=== PATIENT | female | born 1965 | race Two or more races ===

== ENCOUNTER 2025-06-02 12:58 | Emergency (ER) | payer MEDICAID, SELFPAY ==
[2025-06-02 13:00] VITALS: BMI 28.6
[2025-06-02 13:25] VITALS: BP 102/68; PULSE 107; RESP 18; TEMP 39.5; O2SAT 96
--- NOTE | 2025-06-02 13:36 | XR_ITS ---
Examination: PA chest single view TECHNIQUE: Upright PA chest single view Date and time: 06/02/2025 1426 hours INDICATIONS: Shortness of breath and fever beginning 4 days ago. FINDINGS: Normal heart size. Lungs are clear. The osseous structures are intact. IMPRESSION: No active disease
[2025-06-02 14:09] LABS: Lactate (Lactic Acid) 1.1 mMol/L (0.4-2.0)
[2025-06-02 14:16] LABS: Basophils # (Auto) 0.0 Thou/mm3 (0.0-0.2); Basophils % (Auto) 0 % (0-2.5); Eosinophils # (Auto) 0.0 Thou/mm3 (0.0-0.5); Eosinophils % (Auto) 0 % (0-10); Hematocrit 30.4 % (36.0-46.0); Hemoglobin 10.4 g/dL (12.0-16.0); Immature Granulocytes Auto 0.02 Thou/mm3 (0.00-0.00); Lymphocytes # (Auto) 0.3 Thou/mm3 (1.0-4.8); Lymphocytes % (Auto) 4 % (10-50); Mean Corpuscular HGB Conc 34.2 g/dl (31.0-37.0); Mean Corpuscular Hemoglobin 29.1 pg (25.0-35.0); Mean Corpuscular Volume 85 fL (80-100); Monocytes # (Auto) 0.3 Thou/mm3 (0.0-0.8); Monocytes % (Auto) 4 % (0-12); Neutrophils # (Auto) 7.3 Thou/mm3 (1.8-7.7); Neutrophils % (Auto) 92 % (37-80); Nucleated Red Blood Cell # 0.00 Thou/mm3 (0.00-0.00); Nucleated Red Blood Cell % 0 /100 WBC (0); Platelet Count 149 Thou/mm3 (140-440); RDW Standard Deviation 39.5 fL (36.4-46.3); Red Blood Count 3.57 Miln/mm3 (4.00-5.20); White Blood Count 8.0 Thou/mm3 (3.6-11.0)
[2025-06-02 14:42] LABS: Alanine Aminotransferase 9 U/L (10-49); Albumin, Serum 4.0 gm/dL (3.5-5.0); Albumin/Globulin Ratio 2.1 (1.2-2.2); Alkaline Phosphatase 91 U/L (46-116); Anion Gap 9 (7-16); Aspartate Amino Transferase 29 U/L (0-34); BUN/Creatinine Ratio 14 Ratio (12-20); Bilirubin,Total 0.5 mg/dL (0.3-1.2); Blood Urea Nitrogen 11 mg/dL (9-23); Calcium 8.6 mg/dL (8.3-10.6); Calcium (Corrected) 8.6 mg/dL (8.5-10.1); Carbon Dioxide 20.9 mMol/L (20.0-31.0); Chloride 99 mMol/L (98-107); Creatinine (Component) 0.8 mg/dL (0.6-1.3); Estimated Creatinine Clearance 79.1 mL/min (>60); Globulin 1.9 gm/dL (2.3-3.5); Glucose 182 mg/dL (74-106); Osmolality,Calculated 263 (275-295); Potassium 4.2 mMol/L (3.4-5.1); Sodium 129 mMol/L (136-145); Total Protein 5.9 gm/dL (5.7-8.2); eGFR > 60 See Note
[2025-06-02 14:43] LABS: Collection Type, Urine Voided
[2025-06-02 15:02] LABS: Bacteria,Urine Rare; Bilirubin,Urine Negative (Negative); Blood,Urine 2+ (Negative); Clarity,Urine Turbid (Clear/Hazy); Color,Urine Yellow (Lt Yel-Yel); Glucose, Urine Negative (Negative); Ketones,Urine Negative (Negative); Leukocyte Esterase,Urine Positive (Negative); Nitrite,Urine Positive (Negative); PH,Urine 6.5 (5.0-7.0); Protein,Urine 2+ (Neg - Trace); RBC,Urine 19 /hpf (0-3); Specific Gravity,Urine 1.018 (1.001-1.035); Squamous Epithelial Cell,Urine 2 /hpf (0-5); Urobilinogen,Urine Negative mg/dL (0.0-1.0); WBC,Urine 206 /hpf (0-5)
[2025-06-02 15:14] VITALS: TEMP 39.5
[2025-06-02] MEDS: ACETAMINOPHEN 500 MG TABLET 1000 MG PO (15:14)
[2025-06-02 15:45] VITALS: TEMP 37.3
[2025-06-02] MEDS: SODIUM CHLORIDE 0.9% 1000 ML 1,000 ML 999 ML IV (16:52)
[2025-06-02 17:08] LABS: Sodium 129 mMol/L (136-145)
--- NOTE | 2025-06-02 17:14 | EDNOTE_ITS ---
ED Fever RME/HPI General Chief Complaint: Fever Stated Complaint: FEVER/CHILLS x 4 DAYS, DIAG WITH UTI Time Seen by Provider: 06/02/25 13:06 Arrival date/time: 06/02/25 12:58 This is a case of 60-year-old female with no medical history came into the emergency room due to on and off fever and chills for 4 days associated with painful urination patient denies any nausea vomiting abdominal pain flank pain back pain or blood in the urine patient sought consult to PCP where she was diagnosed to have urinary tract infection and was discharged with Macrobid due to persistence of the symptoms this patient decided to start consult in the emergency room Limitations: no limitations Related Data Previous Rx's ?Medication ?Instructions ?Recorded albuterol sulfate 90 mcg/actuation 1 inh inhalation Q6 H PRN shortness 06/29/24 aerosol inhaler of breath or wheezing #8.5 g jorge cefuroxime axetil 500 mg tablet 500 mg PO Q12H #20 tab s 06/02/25 ibuprofen 800 mg tablet 800 mg PO Q8H PRN pain #20 t abs 06/02/25 phenazopyridine 200 mg tablet 200 mg PO TID 6 doses #6 tabs 06/02/25 (Pyridium) Allergies Allergy/AdvReac Type Severity Reaction Status Date / Time No Known Allergies Allergy Verified 06/02/25 13:05 Review of Systems Review of Systems Systems Reviewed: All systems reviewed, normal except as documented Constitutional Constitutional: Reports system reviewed and no additional complaints, except as documented and Reports as per HPI Cardiovascular Cardiovascular: Reports system reviewed and no additional complaints, except as documented and Reports as per HPI Respiratory Respiratory: Reports system reviewed and no additional complaints, except as documented and Reports as per HPI Gastrointestinal Gastrointestinal: Reports system reviewed and no additional complaints, except as documented and Reports as per HPI Genitourinary Genitourinary: Reports system reviewed and no additional complaints, except as documented and Reports as per HPI Musculoskeletal Musculoskeletal: Reports system reviewed and no additional complaints, except as documented and Reports as per HPI Neurologic Neurologic: Reports system reviewed and no additional complaints, except as documented and Reports as per HPI Past Medical History Past Medical History NEUROLOGIC: Negative Neurological Disorders or Seizures CARDIAC: Negative Cardiac Disorders, Hypercholesterolemia or Congestive Heart Failure RESPIRATORY: Negative Chronic Obstructive Pulmonary Disease (COPD) GASTROINTESTINAL: Positive Gastrointestinal Disorders, Gastroesophageal Reflux Disease and Obesity; Negative Hepatitis GENITOURINARY: Negative Genitourinary Disorders or Renal Disease REPRODUCTIVE: Positive Previous Pregnancies MUSCULOSKELETAL: Positive Musculoskeletal Disorders and Arthritis ENDOCRINE: Negative Endocrine Disorders, Diabetes Mellitus Type 1 or Diabetes Mellitus Type 2 HEMATOLOGIC: Negative Blood Disorders PSYCHO/SOCIAL: Positive Anxiety (no med) OTHER HISTORY: Positive Chicken Pox, Measles and Mumps; Negative Hospitalization, Autoimmune Disease, Shingles, Blood Transfusions, Blood Transfusion Reaction, Anesthesia Reactions or Cancer Family History FAMILY HISTORY: Negative Family Psychiatric Problems, Family Respiratory Disorders, Family Cardiac Disorders, Family Gastrointestinal Problems, Family Cancer, Family Surgery or Family Anesthesia Reaction Social History SMOKING STATUS: Never smoker SUBSTANCE USE: does not use Physical Exam General Limitations: no limitations General appearance: alert, in no apparent distress and other (Patient is awake alert oriented not in distress nontoxic looking well-hydrated well-nourished) Head Head exam: atraumatic, normocephalic and normal inspection Eye Eye exam: Present normal appearance, PERRL and EOMI ENT ENT exam: Present normal exam, normal oropharynx, mucous membranes moist and other (HEENT exam is normal and unremarkable) Neck Neck exam: Present normal inspection, full ROM, trachea midline and other (Negative for meningeal sign); Absent tenderness, meningismus, lymphadenopathy or thyromegaly Chest Chest inspection: Present normal inspection and symmetric chest wall rise; Absent tenderness Respiratory Respiratory exam: Present normal lung sounds bilaterally; Absent respiratory distress, wheezes, stridor, accessory muscle use or prolonged expiratory phase Cardiovascular Cardiovascular exam: Present regular rate, normal rhythm and normal heart sounds; Absent bradycardia, tachycardia, irregular rhythm, systolic murmur or diastolic murmur Abdominal Exam Abdominal exam: Present soft and normal bowel sounds; Absent distention, tenderness, guarding, rebound, rigidity, diminished bowel sounds, hyperactive bowel sounds, hypoactive bowel sounds or organomegaly Extremities Exam Extremities exam: Present normal inspection and full ROM Back Exam Back exam: Present normal inspection and full ROM Neurological Exam Neurological exam: Present alert, oriented X3, CN II-XII intact, normal gait and reflexes normal; Absent motor sensory deficit Psychiatric Psychiatric exam: Present normal affect and normal mood Skin Skin exam: Present warm, dry, intact, normal color and other (Excellent skin turgor) ED Exam General Limitations: Present no limitations General appearance: Present alert, in no apparent distress and other (Patient is awake alert oriented not in distress nontoxic looking well-hydrated well- nourished) Head Head exam: Present atraumatic, normocephalic and normal inspection Eye Eye exam: Present normal appearance, PERRL and EOMI ENT ENT exam: Present normal exam, normal oropharynx, mucous membranes moist and other (HEENT exam is normal and unremarkable) Neck Neck exam: Present normal inspection, full ROM, trachea midline and other (Negative for meningeal sign); Absent tenderness, meningismus, lymphadenopathy or thyromegaly Chest Chest inspection: Present normal inspection and symmetric chest wall rise; Absent tenderness Respiratory Respiratory exam: Present normal lung sounds bilaterally; Absent respiratory distress, wheezes, stridor, accessory muscle use or prolonged expiratory phase Cardiovascular Cardiovascular exam: Present regular rate, normal rhythm and normal heart sounds; Absent bradycardia, tachycardia, irregular rhythm, systolic murmur or diastolic murmur Abdominal Exam Abdominal exam: Present soft and normal bowel sounds; Absent distention, tenderness, guarding, rebound, rigidity, diminished bowel sounds, hyperactive bowel sounds, hypoactive bowel sounds or organomegaly Extremities Exam Extremities exam: Present normal inspection and full ROM Back Exam Back exam: Present normal inspection and full ROM Neurological Exam Neurological exam: Present alert, oriented X3, CN II-XII intact, normal gait and reflexes normal; Absent motor sensory deficit Psychiatric Psychiatric exam: Present normal affect and normal mood Skin Skin exam: Present warm, dry, intact, normal color and other (Excellent skin turgor) Course Quality Measures none Orders Category Date Time Status Bedside COVID-19 Antigen Test NOW Care 06/02/25 13:36 Active Bedside Influenza A&B Antigen Test NOW Care 06/02/25 13:37 Completed XR chest 1V Stat Exams 06/02/25 13:36 Completed Blood Culture (Lab) Stat Lab 06/02/25 13:50 Received CBC Stat Lab 06/02/25 13:56 Completed CMP [Comprehensive Metabolic Panel] Stat Lab 06/02/25 13:56 Completed Lactic Acid [Lactate (Lactic Acid)] Stat Lab 06/02/25 13:56 Completed Sodium Stat Lab 06/02/25 16:43 Completed Urinalysis Stat Lab 06/02/25 14:05 Completed Urine Culture Stat Lab 06/02/25 17:09 Ordered Acetaminophen Tab [Tylenol ES Tab] Med 06/02/25 13:36 Discontinued 1,000 mg PO X1 ONE Sodium Chloride 0.9% 1000 ml [Ns] 1,000 ml Med 06/02/25 13:37 Discontinued IV 999 mls/hr cefTRIAXone [Rocephin] 2 gm Med 06/02/25 16:10 Discontinued SODIUM CHLORIDE 0.9% (Popper) [Ns 0.9% (P)] 50 ml IV X1 Vital Signs Vital signs: Vital Signs Temperature 103.1 F H 06/02/25 13:25 Pulse Rate 107 H 06/02/25 13:25 Respiratory Rate 18 06/02/25 13:25 Blood Pressure 102/68 06/02/25 13:25 Pulse Oximetry (%) 96 06/02/25 13:25 Oxygen Delivery Method Room Air 06/02/25 13:25 Oxygen saturation is 96% in room air normal Fever MDM Narrative MDM Narrative:: This is a case of 60-year-old female with no medical history came into the emergency room due to on and off fever and chills for 4 days associated with painful urination patient denies any nausea vomiting abdominal pain flank pain back pain or blood in the urine patient sought consult to PCP where she was diagnosed to have urinary tract infection and was discharged with Macrobid due to persistence of the symptoms this patient decided to start consult in the emergency room physical examination patient is awake alert oriented not in distress nontoxic looking well-hydrated well-nourished negative for meningeal sign excellent skin turgor patient BP is stable patient is febrile and tachycardic but not tachypneic not hypoxic no signs and symptoms of sepsis dehydration meningitis or bacteremia patient lungs sound is clear no crackles no rales no retraction no stridor HEENT exam is normal and unremarkable heart normal rate regular rhythm no murmur patient abdomen is nontender no guarding no rebound no rigidity negative psoas negative straight and negative Rovsing's negative [place]o's no Kelly sign negative CVA tenderness neurological exam were also normal patient blood test showed no leukocytosis mild anemia hemoglobin is 10.4 patient kidney and liver function is normal patient potassium is normal patient is hyponatremic sodium is 129 thus a bolus of normal saline was given patient urinalysis showed WBC and blood in the urine suggestive of urinary tract infection lactic acid is normal patient was also given ceftriaxone IV here in the emergency room and Tylenol for fever after 1 hour patient was reassessed patient condition improved patient temperature went down to 99.5 heart rate went down to 96 at this point patient will be discharged home stable condition patient will follow-up with PCP in 2 days for reevaluation I discontinued the Macrobid and started the patient on cefuroxime with Pyridium and ibuprofen for fever patient advised for any worsening symptoms or any emergent concerns she will return in the emergency room immediately or call 911 patient chest x-ray is normal patient is negative for COVID and flu Patient was discharged with comfortable condition walking with stable gait. Patient verbalized no further complains explained diagnosis and answered patient question. Patient is comfortable with the proposed management plan including the need to follow up with his/her primary care physician and any specialist if applicable Discussed patient for any urgent condition or worsening sx, He/She needed to go to emergency room immediately or call 911. Patient acknowledge the responsibility to follow up as instructed and to monitor her/his symptoms. For any persistence of the symptoms for more than 3-5 days return precaution advised. Discussed the result of the test and was given printed discharge instruction Patient data External records reviewed:: [facility] previous records Clinical information provided by:: patient Social determinants that could affect healthcare access:: none Patient has the following chronic illnesses:: None How is presenting disease/condition affected by chronic disease/condition?: no chronic disease Evaluation data The following diagnostics were reviewed and interpreted by me:: lab results and radiology exam(s) Lab and/or radiology exams considered but not ordered:: Reviewed Interpretation Summary: Reviewed Medications / Prescriptions Medications or Prescriptions considered but not ordered:: Given Medication administrations:: Medication Administration History Discontinued Medications Acetaminophen (Acetaminophen 500 Mg Tablet) 1,000 mg PO X1 ONE Stop: 06/02/25 13:37 Last Admin: 06/02/25 15:14 Dose: 1,000 mg Documented By: Sodium Chloride (Ns) 1,000 mls @ 999 mls/hr IV .Q1H1M ONE Stop: 06/02/25 14:37 Last Admin: 06/02/25 16:52 Dose: 999 mls/hr Documented By: Ceftriaxone Sodium 2 gm/ (Sodium Chloride) 50 mls @ 100 mls/hr IV X1 ONE Stop: 06/02/25 16:39 Given Consultations Consultation(s) initiated? (list below): No Diagnosis Fever Differential Diagnosis: fever of unknown origin, community acquired pneumonia, influenza and other (Urinary tract infection) Most likely diagnosis given after review of the tests above:: Urinary tract infection Admission Indicated Admission indicated?: not indicated Explain why admission is indicated or not indicated:: Not indicated Admission Request Was there a request for admission?: No Admission Attestation Admission request attestation: Not indicated Disposition Plan Disposition Plan: Discharge Discharge Attestation Discharge Attestation: The patient and all family members were given an opportunity to ask questions and understood the discharge instructions. Discharge instructions specifically effects, indications for sooner follow up or return to the emergency department, and the expected course of current diagnosis. Patient condition: Stable Discharge Plan Plan Patient Disposition: HOME (Self Care) Patient condition on transfer: Stable Prescriptions/Referrals Prescriptions/Med Rec: New cefuroxime axetil 500 mg tablet 500 mg PO Q12H Qty: 20 0RF ibuprofen 800 mg tablet 800 mg PO Q8H PRN (Reason: pain) Qty: 20 0RF phenazopyridine [Pyridium] 200 mg tablet 200 mg PO TID Qty: 6 0RF No Action albuterol sulfate 90 mcg/actuation HFA aerosol inhaler 1 inh inhalation Q6H PRN (Reason: shortness of breath or wheezing) Qty: 8.5 0RF Rx Instructions: Please dispense spacer with teaching Referrals: No Primary/Family,Physician [Primary Care Provider] - In 1 week Problem List Clinical Impression: Fever, Urinary tract infection Patient/Caregiver Discharge Instructions Education Materials: Urinary Tract Infections in Women, ED FUO Adult Additional Instructions: Follow-up with your primary care physician in 2 days for reevaluation worsening symptoms or any emergent concern call 911 or go to the nearest emergency room take your medication as directed Pedialyte Gatorade for hydration cranberry juice is advised stop Macrobid and start cefuroxime to be taken for 10 days twice a day finish the course of antibiotic is advised Print Language: Turkish Stand Alone Forms: Hayley Award Info., Patient Portal Info Letter PA/BLENDING SUPERVISOR Supervising Physician PA/BLENDING SUPERVISOR Supervising Physician: dr moran
[2025-06-02] MEDS: cefTRIAXone 2 GM in SODIUM CHLORIDE 0.9% (Popper) 50 ML IV (18:00)
--- NOTE | 2025-06-02 19:11 | PC.NURSE ---
Patient c/o PEREZ 03/27 pain, Provider Sourav made aware, new verbal order for Ibuprofen 800mg PO x1 now.
[2025-06-02] MEDS: IBUPROFEN TAB 400 MG TABLET 800 MG PO (19:25)
== END 2025-06-02 19:40 | disposition home or self-care (01) ==
PROVIDERS: Nurse Practitioner Family; Emergency Provider Emergency Medicine
DX: N39.0 Urinary tract infection, site not specified (principal); R31.9 Hematuria, unspecified; R06.02 Shortness of breath
CPT/HCPCS: 36415; 71045; 80053; 81001; 83605; 84295; 85025; 87040; 87086; 87400; 87811; 96361; 96365; 99283; J0696; J7030; J7050; A9270

== ENCOUNTER → 2025-06-11 | Outpatient (CLI) | payer MEDICAID, SELFPAY ==
--- NOTE | 2025-06-11 11:00 | XR_ITS ---
Examination: Video esophagram Modified barium swallow Fluoroscopy 45 spot fluoroscopic films of the soft tissue lateral neck with the patient swallowing Date and time: June 11, 2025, 1119 hours INDICATIONS: History heartburn, clinical diagnosis esophagitis this month TECHNIQUE AND FINDINGS: Patient swallowed barium mixtures, thin barium, cracker barium with 45 spot fluoroscopic images of the neck, radiation dose 15.60 milligray Minor pooling in the vallecular region and piriform sinuses No frontal penetration or aspiration IMPRESSION: No pharyngeal penetration or aspiration Consider standard fluoroscopically guided esophagram follow-up
== END | disposition home or self-care (01) ==
PROVIDERS: PCP Family Medicine; Referring Provider Family Medicine; Visit Provider Family Medicine
DX: R12 Heartburn (principal); K20.90 Esophagitis, unspecified without bleeding
CPT/HCPCS: 74230; A9270

== ENCOUNTER 2025-07-14 17:41 | Emergency (ER) | payer MEDICAID, SELFPAY ==
[2025-07-14 17:42] VITALS: BMI 29.9
[2025-07-14 17:57] VITALS: BP 112/69; PULSE 70; RESP 20; TEMP 36.7; O2SAT 98
--- NOTE | 2025-07-14 18:43 | XR_ITS ---
Examination: CT brain head without contrast. 2-D sagittal coronal reconstructions Date and time of exam: July 14, 2025, 1858 hours COMPARISON: March 02, 2019 INDICATIONS: Onset slurred speech today CTDI: vol (mGy): 52.5 DLP: (mGycm): 1070 Technique: Multiple CT axial sections of the brain have been obtained, 5 mm slice thickness. Contrast has not been administered. 2-D sagittal, coronal reconstructions have been obtained Low dose protocols were performed. One or more of the following dose reduction techniques were used; automated exposure control, adjustment of the mA and/or KV according to patient size, use of iterative reconstruction technique. Findings: No significant ventricular enlargement. Intra-axial or extra-axial hemorrhage density is not seen. No mass effect or midline shift Basal cisterns are not remarkable. Fourth ventricle is midline. Cranial vault intact. Impression: Negative for acute hemorrhage, mass effect or midline shift If symptoms persist, as clinically warranted, consider brain MRI follow-up stroke protocol
--- NOTE | 2025-07-14 18:47 | EDRME_ITS ---
Rapid Medical Screening Exam [facility] Arrival date/time: 07/14/25 17:41 60-year-old female who denies past medical history reports with complaints of weakness difficulty swallowing difficulty speaking for several weeks Chief Complaint: Weakness Time Seen by Provider: 07/14/25 18:29 Vital signs: Vital Signs Temperature 98.1 F 07/14/25 17:57 Pulse Rate 70 07/14/25 17:57 Respiratory Rate 20 07/14/25 17:57 Blood Pressure 112/69 07/14/25 17:57 Pulse Oximetry (%) 98 07/14/25 17:57 Oxygen Delivery Method Room Air 07/14/25 17:57 Exam: ? Clinical Impression: ?
[2025-07-14 19:00] LABS: Basophils # (Auto) 0.0 Thou/mm3 (0.0-0.2); Basophils % (Auto) 1 % (0-2.5); Eosinophils # (Auto) 0.2 Thou/mm3 (0.0-0.5); Eosinophils % (Auto) 3 % (0-10); Hematocrit 34.2 % (36.0-46.0); Hemoglobin 11.6 g/dL (12.0-16.0); Immature Granulocytes Auto 0.01 Thou/mm3 (0.00-0.00); Lymphocytes # (Auto) 2.7 Thou/mm3 (1.0-4.8); Lymphocytes % (Auto) 46 % (10-50); Mean Corpuscular HGB Conc 33.9 g/dl (31.0-37.0); Mean Corpuscular Hemoglobin 29.4 pg (25.0-35.0); Mean Corpuscular Volume 87 fL (80-100); Monocytes # (Auto) 0.4 Thou/mm3 (0.0-0.8); Monocytes % (Auto) 6 % (0-12); Neutrophils # (Auto) 2.6 Thou/mm3 (1.8-7.7); Neutrophils % (Auto) 44 % (37-80); Nucleated Red Blood Cell # 0.00 Thou/mm3 (0.00-0.00); Nucleated Red Blood Cell % 0 /100 WBC (0); Platelet Count 240 Thou/mm3 (140-440); RDW Standard Deviation 40.5 fL (36.4-46.3); Red Blood Count 3.95 Miln/mm3 (4.00-5.20); White Blood Count 5.9 Thou/mm3 (3.6-11.0)
[2025-07-14 19:20] LABS: Alanine Aminotransferase < 7 U/L (10-49); Albumin, Serum 4.7 gm/dL (3.5-5.0); Albumin/Globulin Ratio 2.0 (1.2-2.2); Alkaline Phosphatase 102 U/L (46-116); Anion Gap 8 (7-16); Aspartate Amino Transferase 28 U/L (0-34); BUN/Creatinine Ratio 23 Ratio (12-20); Bilirubin,Total 0.4 mg/dL (0.3-1.2); Blood Urea Nitrogen 14 mg/dL (9-23); Calcium 9.8 mg/dL (8.3-10.6); Calcium (Corrected) 9.8 mg/dL (8.5-10.1); Carbon Dioxide 25.8 mMol/L (20.0-31.0); Chloride 103 mMol/L (98-107); Creatinine (Component) 0.6 mg/dL (0.6-1.3); Estimated Creatinine Clearance 107.9 mL/min (>60); Globulin 2.3 gm/dL (2.3-3.5); Glucose 102 mg/dL (74-106); Osmolality,Calculated 274 (275-295); Potassium 4.1 mMol/L (3.4-5.1); Sodium 137 mMol/L (136-145); Total Protein 7.0 gm/dL (5.7-8.2); eGFR > 60 See Note
[2025-07-14 19:43] LABS: INR 0.9 (0.9-1.3); Partial Thromboplastin Time 26.0 Seconds (22.0-36.0); Prothrombin Time 9.8 Seconds (9.0-12.2)
[2025-07-14 22:22] VITALS: BP 145/90; PULSE 70; RESP 16; TEMP 36.9; O2SAT 99
--- NOTE | 2025-07-14 22:34 | EDNOTE_ITS ---
ED General RME/HPI General Chief complaint: Weakness Stated complaint: TONGUE STIFF/WEAKNESS X 1 MONTH, WORSE AT 12 YEST Time Seen by Provider: 07/14/25 18:29 Arrival date/time: 07/14/25 17:41 CC: Intermittent slurred speech, heaviness in her arms. HPI ongoing for the past several weeks comes and goes not consistent family members report the patient stating slurred speech becomes worse when she drinks cold water. Patient denies fever chills chest pain shortness of breath difficulty breathing prior episodes of similar events. Patient was seen by PCP at the time of onset and was referred to neurology but has not gotten referral approved. Patient is awake alert oriented no slurred speech with no focal benefits RME / HPI RME / HPI narrative: 07/14/25 17:41 60-year-old female who denies past medical history reports with complaints of weakness difficulty swallowing difficulty speaking for several weeks Exam: ? Impression: ? Related Data Previous Rx's ?Medication ?Instructions ?Recorded albuterol sulfate 90 mcg/actuation 1 inh inhalation Q6 H PRN shortness 06/29/24 aerosol inhaler of breath or wheezing #8.5 g jorge cefuroxime axetil 500 mg tablet 500 mg PO Q12H #20 tab s 06/02/25 ibuprofen 800 mg tablet 800 mg PO Q8H PRN pain #20 t abs 06/02/25 phenazopyridine 200 mg tablet 200 mg PO TID 6 doses #6 tabs 06/02/25 (Pyridium) Allergies Allergy/AdvReac Type Severity Reaction Status Date / Time No Known Allergies Allergy Verified 07/14/25 17:45 Review of Systems Review of Systems Narrative Review of Systems: GEN: No fever, no chills, no weight loss EYES: No discharge, no visual changes, no pain HEENT: No ear pain, no congestion, no sore throat PULM: No shortness of breath, no cough, no congestion CV: No chest pain, no dyspnea on exertion, no palpitations GI: No nausea, no vomiting, no diarrhea, no pain, no constipation : No frequency, no urgency, no dysuria MUSC/SKEL: No joint pain, no back pain SKIN: No rash PSYCH: No hallucinations, no depression HEME/LYMPH: No easy bleeding or bruising tendencies NEURO: + weakness, no headache Past Medical History Past Medical History NEUROLOGIC: Negative Neurological Disorders or Seizures CARDIAC: Negative Cardiac Disorders, Hypercholesterolemia or Congestive Heart Failure RESPIRATORY: Negative Chronic Obstructive Pulmonary Disease (COPD) GASTROINTESTINAL: Positive Gastrointestinal Disorders, Gastroesophageal Reflux Disease and Obesity; Negative Hepatitis GENITOURINARY: Negative Genitourinary Disorders or Renal Disease REPRODUCTIVE: Positive Previous Pregnancies MUSCULOSKELETAL: Positive Musculoskeletal Disorders and Arthritis ENDOCRINE: Negative Endocrine Disorders, Diabetes Mellitus Type 1 or Diabetes Mellitus Type 2 HEMATOLOGIC: Negative Blood Disorders PSYCHO/SOCIAL: Positive Anxiety (no med) OTHER HISTORY: Positive Chicken Pox, Measles and Mumps; Negative Hospitalization, Autoimmune Disease, Shingles, Blood Transfusions, Blood Transfusion Reaction, Anesthesia Reactions or Cancer Family History FAMILY HISTORY: Negative Family Psychiatric Problems, Family Respiratory Disorders, Family Cardiac Disorders, Family Gastrointestinal Problems, Family Cancer, Family Surgery or Family Anesthesia Reaction Social History SMOKING STATUS: Never smoker SUBSTANCE USE: does not use ED Exam Narrative Physical exam: [General: Not in any acute distress Head normocephalic HEENT: Eyes pupils are PERRLA EOMs are intact mouth pink moist membranes uvula is midline no facial asymmetry smile is symmetrical when speaking clear clip to tones with no slurred speech. All other subsystems of HEENT are within acceptable limits Neck is supple nontender Chest equal chest rise nontender to palpation Respiratory: Clear to auscultation no wheezes crackles or rubs CV: Rate rhythm is regular no murmurs rubs or clicks Abdomen is soft nontender no masses positive bowel sounds all 4 quadrants Back: No CVA tenderness no spinous process tenderness from cervical spine thoracic and lumbar spine Skin: Intact no petechiae rash induration ulceration or crepitus Extremities: Moving all extremity against resistance cap refill less than 2 seconds neurosensory intact Neuro: Awake alert oriented x3 Glascow coma 15 no focal deficits] Course Course Course Narrative: Patient has an inconsistent pattern of the complaints stating that there is occasional heaviness in the arms then heaviness in the shoulders then slurred speech which all is intermittent at the time of the exam these were not evident. At this time I recommend the patient follow-up with neurology in outpatient if there is a persistence or worsening of the symptoms return to the emergency room immediately for further evaluation. Quality Measures none Orders Category Date Time Status CT head/brain wo con Stat Exams 07/14/25 18:43 Completed CBC Stat Lab 07/14/25 18:50 Completed CMP [Comprehensive Metabolic Panel] Stat Lab 07/14/25 18:50 Completed PT [Prothrombin Time with INR] Stat Lab 07/14/25 18:50 Completed PTT [Partial Thromboplastin Time] Stat Lab 07/14/25 18:50 Completed Vital Signs Vital signs: Vital Signs Temperature 98.1 F 07/14/25 17:57 Pulse Rate 70 07/14/25 17:57 Respiratory Rate 20 07/14/25 17:57 Blood Pressure 112/69 07/14/25 17:57 Pulse Oximetry (%) 98 07/14/25 17:57 Oxygen Delivery Method Room Air 07/14/25 17:57 Discharge Plan Plan Patient Disposition: HOME (Self Care) Patient condition on transfer: Stable Prescriptions/Referrals Prescriptions/Med Rec: No Action cefuroxime axetil 500 mg tablet 500 mg PO Q12H Qty: 20 0RF ibuprofen 800 mg tablet 800 mg PO Q8H PRN (Reason: pain) Qty: 20 0RF phenazopyridine [Pyridium] 200 mg tablet 200 mg PO TID Qty: 6 0RF albuterol sulfate 90 mcg/actuation HFA aerosol inhaler 1 inh inhalation Q6H PRN (Reason: shortness of breath or wheezing) Qty: 8.5 0RF Rx Instructions: Please dispense spacer with teaching Referrals: Steve Singh MD [Primary Care Provider, Family Practice] - In 1 week Steve Hager MD [Physician, Neurology] - In 1 week Problem List Clinical Impression: Slurred speech Patient/Caregiver Discharge Instructions Education Materials: Treating Dysarthria Additional Instructions: Follow-up with a primary care doctor get a referral to the neurologist or try and go to the neurologic listed above. If there is a worsening of symptoms or the symptoms remained unchanged return to the emergency room for reevaluation. Print Language: Khmer Stand Alone Forms: Hayley Award Info., Work/School Release, Patient Portal Info Letter KAREN/PHILIPPE Supervising Physician KAREN/PHILIPPE Supervising Physician: José Antonio King ENP [facility] Clinical Information Provided by: patient Medical Records reviewed [facility] Meds/Rx considered, not ordered None Labs/Rad/Tests considered, not ordered None Chronic Illness/Social Conditions which may negatively complicate care or outcome(s)-explain: None or not applicable EKG EKG not done Labs Labs: interpreted by vt Lab(s) Interpretation(s): CBC shows no leukocytosis there is a anemia hemoglobin of 11.6 and hematocrit of 34.2. No thrombocytopenia Coags within acceptable limits CMP shows no significant electrolyte imbalances renal impairment transaminitis or T. bili elevation Imaging Imaging interpretation: interpreted by me Imaging Interpretation(s): CT head is negative for any acute finding
[2025-07-14 22:45] VITALS: RESP 16
== END 2025-07-14 22:46 | disposition home or self-care (01) ==
PROVIDERS: Physician Assistant; Emergency Provider Emergency Medicine; PCP Family Medicine
DX: R47.1 Dysarthria and anarthria (principal)
CPT/HCPCS: 36415; 70450; 80053; 85025; 85610; 85730; 99283